=== PATIENT | male | born 1980 | race Caucasian/White ===

== ENCOUNTER 2018-08-24 12:41 | Emergency (ER) | payer MEDICAID ==
[~2018-08-24] VITALS: Ht 175.3 cm; Wt 72.6 kg
[2018-08-24] MEDS ORDERED: LAMICTAL (12:49)
[2018-08-24] MEDS ORDERED: EFFEXOR (12:49)
[2018-08-24] MEDS ORDERED: ONDANSETRON 4 MG/2 ML VIAL ONE (12:57)
[2018-08-24] MEDS: ONDANSETRON 4 MG/2 ML VIAL IV ONE (12:57)
[2018-08-24 13:03] LABS: BASOPHILS # (AUTO) 0.1 K/uL (0.0-8.0); BASOPHILS % (AUTO) 0.6 % (0.0-2.0); EOSINOPHILS % (AUTO) 0.2 % (0.0-7.0); HEMATOCRIT 39.4 % (36.7-47.1); HEMOGLOBIN 13.5 g/dL (12.5-16.3); LYMPHOCYTES # (AUTO) 1.6 K/uL (20.0-40.0); LYMPHOCYTES % (AUTO) 9.6 % (20.5-51.5); MEAN CORPUSCULAR HEMOGLOBIN 31.3 uug (23.8-33.4); MEAN CORPUSCULAR HGB CONC 34 g/dL (32.5-36.3); MEAN CORPUSCULAR VOLUME 91.4 fL (73.0-96.2); MONOCYTES # (AUTO) 1.2 K/uL (2.0-10.0); MONOCYTES % (AUTO) 7.1 % (0.0-11.0); NEUTROPHILS # (AUTO) 13.9 K/uL (1.8-8.9); NEUTROPHILS % (AUTO) 82.5 % (38.5-71.5); PLATELET COUNT (AUTO) 247 K/uL (152-348); RED BLOOD CELL COUNT(AUTO) 4.31 MIL/uL (4.06-5.63); WHITE BLOOD COUNT (AUTO) 16.9 K/uL (3.6-10.2)
--- NOTE | 2018-08-24 13:04 | NUR ---
PT REQUESTING FOOD. HOSPITAL SANDWICH PROVIDED FOR PT.
[2018-08-24 13:11] LABS: CARBON DIOXIDE 28 mmol/L (21-32); CHLORIDE 101 mmol/L (98-107); CREATININE 0.8 mg/dL (0.6-1.3); GLUCOSE 120 mg/dL (74-106); POTASSIUM 3.5 mmol/L (3.5-5.1); UREA NITROGEN, BLOOD 13 mg/dL (7-18)
[2018-08-24 13:17] LABS: ALANINE AMINOTRANSFERASE 28 U/L (16-63); ALKALINE PHOSPHATASE 75 U/L (50-136); ASPARTATE AMINOTRANSFERASE 15 U/L (15-37); BILIRUBIN,DIRECT 0.1 mg/dL (0.0-0.2); BILIRUBIN,TOTAL 0.5 mg/dL (0.2-1.0); TOTAL PROTEIN, SERUM 7.2 g/dL (6.4-8.2)
[2018-08-24 13:18] LABS: ETHANOL < 3 MG/DL (0-0)
[2018-08-24] MEDS ORDERED: LORAZEPAM 2 MG/1 ML VIAL ONE (14:09)
[2018-08-24 14:13] LABS: *AMPHETAMINE, URINE NEGATIVE (NEGATIVE); *BARBITURATE, URINE NEGATIVE (NEGATIVE); *CANNABINOID, URINE POSITIVE (NEGATIVE); *COCCAINE, URINE NEGATIVE (NEGATIVE); *OPIATE, URINE NEGATIVE (NEGATIVE); *PHENCYCLIDINE SCREEN,URINE NEGATIVE (NEGATIVE)
[2018-08-24] MEDS: LORAZEPAM 2 MG/1 ML VIAL IV ONE (14:15)
--- NOTE | 2018-08-24 15:20 | NUR ---
MAG, TEACHING FELLOW AT BEDSIDE HELPING PT.
--- NOTE | 2018-08-24 15:25 | NUR ---
Patient discharged to home in stable conditon. Written and verbal after care instructions given. Patient verbalizes understanding of instructions.PT WALKS IN STEADY GAIT.
[2018-08-24 15:26] VITALS: BP 121/61
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
== END 2018-08-24 15:28 | disposition home or self-care (01) ==
LOC: ER 12:41
DX: F41.9 Anxiety disorder, unspecified (principal); F17.200 Nicotine dependence, unspecified, uncomplicated
CPT/HCPCS: 36415; 71045; 80307; 85025; 93005; A4663; G0480; J2060; J2405; J7030